=== PATIENT | male | born 1980 | race Caucasian/White ===

== ENCOUNTER 2020-11-01 13:14 | Emergency (ER) | payer BC, OTHER ==
[~2020-11-01] VITALS: Ht 187 cm; Wt 125.0 kg
--- NOTE | 2020-11-01 13:25 | ED Chest Pain ---
General Chief Complaint: Chest Pain Stated Complaint: CP, Source: patient Exam Limitations: no limitations History of Present Illness Date Seen by Provider: Nov 01, 2020 Time Seen by Provider: 13:23 Initial Comments To ER by private vehicle with reports of chest pain that is retrosternal and radiates through to the back. It began about 15 minutes ago. He just got up from his desk and was walking to the [employer] department at [employer] where he is employed. He is never had this before. No associated shortness of breath or nausea. No diaphoresis. He is a former smoker he quit 5 years ago. He has a history of hypertension but does not know of any diagnoses of diabetes or hyperlipidemia. He does have a family history of premature CAD, both mother and father in their mid 50s from [place]. Timing/Duration: 1/2 hour Severity/Quality: moderate Location: central Radiation: no radiation Activities at Onset: none ASA po SHIPPER/RECEIVER: No NTG SL SHIPPER/RECEIVER: No Allergies and Home Medications Allergies Coded Allergies: No Known Drug Allergies (Unverified , 11/01/20) Patient Home Medication List Home Medication List Reviewed: Yes Review of Systems Review of Systems Constitutional: see HPI EENTM: No Symptoms Reported Respiratory: No Symptoms Reported Cardiovascular: See HPI, Chest Pain Gastrointestinal: No Symptoms Reported Genitourinary: No Symptoms Reported Musculoskeletal: no symptoms reported Skin: no symptoms reported Psychiatric/Neurological: No Symptoms Reported Endocrine: No Symptoms Reported Hematologic/Lymphatic: No Symptoms Reported Physical Exam Vital Signs Vital Signs - First Documented 11/01/20 13:18 Temp 36.2 Pulse 74 Resp 20 B/P (MAP) 154/105 (121) O2 Delivery Room Air Capillary Refill : Height, Weight, BMI Height: '" Weight: lbs. oz. kg; BMI Method: General Appearance: No Apparent Distress, WD/WN HEENT: PERRL/EOMI, TMs Normal Neck: Full Range of Motion, Normal Inspection Respiratory: Normal Breath Sounds, No Accessory Muscle Use, No Respiratory Distress Cardiovascular: Regular Rate, Rhythm, Normal Peripheral Pulses Gastrointestinal: Normal Bowel Sounds, Non Tender, Soft Extremity: Normal Capillary Refill, Normal Inspection Neurologic/Psychiatric: Alert, Oriented x3 Skin: Normal Color, Warm/Dry Progress/Results/Core Measures Results/Orders Lab Results Laboratory Tests Test 11/01/20 13:23 11/01/20 15:30 Range/Units White Blood Count 11.1 H 4.3-11.0 10^3/uL Red Blood Count 5.24 4.30-5.52 10^6/uL Hemoglobin 15.5 13.3-17.7 g/dL Hematocrit 46 40-54 % Mean Corpuscular Volume 88 80-99 fL Mean Corpuscular Hemoglobin 30 25-34 pg Mean Corpuscular Hemoglobin Concent 34 32-36 g/dL Red Cell Distribution Width 11.8 10.0-14.5 % Platelet Count 341 130-400 10^3/uL Mean Platelet Volume 9.1 9.0-12.2 fL Immature Granulocyte % (Auto) 0 % Neutrophils (%) (Auto) 64 42-75 % Lymphocytes (%) (Auto) 24 12-44 % Monocytes (%) (Auto) 7 0-12 % Eosinophils (%) (Auto) 4 0-10 % Basophils (%) (Auto) 1 0-10 % Neutrophils # (Auto) 7.1 1.8-7.8 10^3/uL Lymphocytes # (Auto) 2.7 1.0-4.0 10^3/uL Monocytes # (Auto) 0.8 0.0-1.0 10^3/uL Eosinophils # (Auto) 0.4 H 0.0-0.3 10^3/uL Basophils # (Auto) 0.1 0.0-0.1 10^3/uL Immature Granulocyte # (Auto) 0.0 0.0-0.1 10^3/uL Prothrombin Time 12.7 12.2-14.7 SEC INR Comment 0.9 0.8-1.4 Activated Partial Thromboplast Time 25 24-35 SEC D-Dimer < 0.27 0.00-0.49 UG/ML Sodium Level 140 135-145 MMOL/L Potassium Level 3.9 3.6-5.0 MMOL/L Chloride Level 104 98-107 MMOL/L Carbon Dioxide Level 21 21-32 MMOL/L Anion Gap 15 H 5-14 MMOL/L Blood Urea Nitrogen 14 7-18 MG/DL Creatinine 0.96 0.60-1.30 MG/DL Estimat Glomerular Filtration Rate > 60 BUN/Creatinine Ratio 15 Glucose Level 92 70-105 MG/DL Calcium Level 9.2 8.5-10.1 MG/DL Corrected Calcium 8.8 8.5-10.1 MG/DL Magnesium Level 2.1 1.6-2.4 MG/DL Total Bilirubin 0.8 0.1-1.0 MG/DL Aspartate Amino Transf (AST/SGOT) 17 5-34 U/L Alanine Aminotransferase (ALT/SGPT) 27 0-55 U/L Alkaline Phosphatase 74 40-136 U/L Myoglobin 29.4 10.0-92.0 NG/ML Troponin I < 0.028 < 0.028 <0.028 NG/ML B-Type Natriuretic Peptide 22.6 <100.0 PG/ML Total Protein 7.6 6.4-8.2 GM/DL Albumin 4.5 3.2-4.5 GM/DL Lipase 16 8-78 U/L My Orders Orders - CARISA MAN APRN Cbc With Automated Diff (11/01/20 13:22) Magnesium (11/01/20 13:22) Chest 1 View, Ap/Pa Only (11/01/20 13:22) Ekg Tracing (11/01/20 13:22) Comprehensive Metabolic Panel (11/01/20 13:22) Myoglobin Serum (11/01/20 13:22) Protime With Inr (11/01/20 13:22) Partial Thromboplastin Time (11/01/20 13:22) O2 (11/01/20 13:22) Monitor-Rhythm Ecg Trace Only (11/01/20 13:22) Lipid Panel (11/02/20 06:00) Ed Iv/Invasive Line Start (11/01/20 13:22) Lipase (11/01/20 13:22) BNP (11/01/20 13:22) Fibrin Degradation Products (11/01/20 13:22) Troponin I (11/01/20 13:22) Nitroglycerin 0.4 Mg Btl 25's (Nitrostat (11/01/20 13:30) Aspirin Chewable Tablet (Baby Aspirin Ch (11/01/20 13:30) Troponin I (11/01/20 15:23) Medications Given in ED Current Medications Medications Dose Ordered Sig/Jose Route Start Time Stop Time Status Last Admin Dose Admin Aspirin 324 mg ONCE ONCE PO 11/01/20 13:30 11/01/20 13:31 DC 11/01/20 13:33 324 MG Nitroglycerin 0.4 mg UD PRN SL 11/01/20 13:30 11/01/20 13:33 0.4 MG Vital Signs/I&O 11/01/20 11/01/20 13:18 13:20 Temp 36.2 Pulse 74 Resp 20 B/P (MAP) 154/105 (121) O2 Delivery Room Air Room Air Diagnostic Imaging Diagonstic Imaging: Xray Comments NAME: RICHARD MONSON [facility] REC#: [id number] PT STATUS: REG ER : 1980 PHYSICIAN: CARISA MAN APRN ADMIT DATE: 11/01/20/ER Draft Date of Exam:11/01/20 CHEST 1 VIEW, AP/PA ONLY INDICATION: Chest pain. TECHNIQUE: AP view of the chest is obtained. COMPARISON: No previous study is available for comparison at this time. FINDINGS: Heart size and pulmonary vasculature are within normal limits, and the lungs are clear, bilaterally. IMPRESSION: Unremarkable chest. Dictated on workstation # [id number] Dict: 11/01/20 1354 Trans: 11/01/20 1356 [id number] Interpreted by: SARKIS BARRON MD Electronically signed by: Departure Communication (Admissions) [id number] at this time as he has been since receiving 1 sublingual nitroglycerin which took his pain from a 7 down to a 0. Impression Primary Impression: Chest pain Disposition: 01 HOME, SELF-CARE Condition: Stable Departure-Patient Inst. Decision time for Depature: 16:22 Referrals: SUZIE ROSE MD [facility] LUIS BRAN MD Patient Instructions: Chest Pain (DC) Add. Discharge Instructions: 1. It is most likely that your discomfort was caused by an esophageal spasm. However if you have a recurrence of symptoms you should return to the emergency room. Otherwise call the nuclear weapons specialist of your choosing tomorrow to make an appointment to be seen within the next 1 to 2 weeks for further evaluation given your strong family history of premature coronary disease. Take the acid solution designer as directed. All discharge instructions reviewed with patient and/or family. Voiced understanding. Scripts Pantoprazole Sodium (Pantoprazole Sodium) 40 Mg Tablet. 40 MG PO DAILY, #30 TAB Prov: CARISA MAN APRN 11/01/20 Work/School Note: Work Release Form Date Seen in the Emergency Department: Nov 01, 2020 Return to Work: Nov 02, 2020 Copy Copies To 1: SUZIE ROSE MD [facility]; LUIS BRAN MD, PETER J APRN Nov 01, 2020 13:25
[2020-11-01] MEDS ORDERED: ASPIRIN 81 MG CHEW (CHILDREN'S ASA) PO ONE (13:30)
[2020-11-01] MEDS ORDERED: NITROGLYCERIN 0.4 MG SL TABS BTL 25'S SL PRN (13:30)
[2020-11-01 13:33] LABS: BASOPHILS # (AUTO) 0.1 10^3/uL (0.0-0.1); BASOPHILS % (AUTO) 1 % (0-10); EOSINOPHILS # (AUTO) 0.4 10^3/uL (0.0-0.3); EOSINOPHILS % (AUTO) 4 % (0-10); HEMATOCRIT 46 % (40-54); HEMOGLOBIN 15.5 g/dL (13.3-17.7); LYMPHOCYTES # (AUTO) 2.7 10^3/uL (1.0-4.0); LYMPHOCYTES % (AUTO) 24 % (12-44); MEAN CORPUSCULAR HEMOGLOBIN 30 pg (25-34); MEAN CORPUSCULAR HGB CONC 34 g/dL (32-36); MEAN CORPUSCULAR VOLUME 88 fL (80-99); MEAN PLATELET VOLUME 9.1 fL (9.0-12.2); MONOCYTES # (AUTO) 0.8 10^3/uL (0.0-1.0); MONOCYTES % (AUTO) 7 % (0-12); NEUTROPHILS # (AUTO) 7.1 10^3/uL (1.8-7.8); NEUTROPHILS % (AUTO) 64 % (42-75); PLATELET COUNT 341 10^3/uL (130-400); WHITE BLOOD COUNT 11.1 10^3/uL (4.3-11.0)
[2020-11-01 13:47] LABS: INR 0.9 (0.8-1.4); PROTHROMBIN TIME PATIENT 12.7 SEC (12.2-14.7)
[2020-11-01 13:52] LABS: ALBUMIN 4.5 GM/DL (3.2-4.5); CHLORIDE 104 MMOL/L (98-107); POTASSIUM 3.9 MMOL/L (3.6-5.0); SODIUM 140 MMOL/L (135-145)
[2020-11-01 13:54] LABS: CALCIUM 9.2 MG/DL (8.5-10.1)
[2020-11-01 13:55] LABS: GLUCOSE 92 MG/DL (70-105); TOTAL PROTEIN 7.6 GM/DL (6.4-8.2)
[2020-11-01 13:56] LABS: CARBON DIOXIDE 21 MMOL/L (21-32)
--- NOTE | 2020-11-01 13:56 | Diagnostic Imaging Report ---
INDICATION: Chest pain. TECHNIQUE: AP view of the chest is obtained. COMPARISON: No previous study is available for comparison at this time. FINDINGS: Heart size and pulmonary vasculature are within normal limits, and the lungs are clear, bilaterally. IMPRESSION: Unremarkable chest. Dictated by: Dictated on workstation # [id number]
[2020-11-01 13:57] LABS: BILIRUBIN,TOTAL 0.8 MG/DL (0.1-1.0)
[2020-11-01 13:58] LABS: ALKALINE PHOSPHATASE 74 U/L (40-136); CREATININE SERUM 0.96 MG/DL (0.60-1.30); GFR ESTIMATED > 60
[2020-11-01 13:59] LABS: BUN/CREATININE RATIO 15
[2020-11-01 14:01] LABS: ALANINE AMINOTRANSFERASE 27 U/L (0-55); MAGNESIUM 2.1 MG/DL (1.6-2.4)
[2020-11-01 14:02] LABS: LIPASE 16 U/L (8-78)
[2020-11-01] MEDS ORDERED: PANT40TA52 PO (16:24)
[2020-11-01 16:45] VITALS: BP 146/103
== END 2020-11-01 16:44 | disposition home or self-care (01) ==
LOC: ER 13:16
DX: R07.9 Chest pain, unspecified (principal)
CPT/HCPCS: 36415; 71045; 80053; 83690; 83735; 83874; 83880; 84484; 85025; 85379; 85610; 85730; 93005; 93041